=== PATIENT | female | born 1975 ===

== ENCOUNTER → 2023-07-01 08:55 | Outpatient (CLI) | payer OTHER, SELFPAY ==
--- NOTE | 2023-07-01 | DI.US.S_ITS ---
LIMITED ULTRASOUND OF LEFT BREAST: 07/01/2023 CLINICAL: Patient returns today to evaluate a focal asymmetry in the left breast. Comparison is made to exams dated: 07/01/2023 mammogram - [facility], 06/13/2023 mammogram, 07/09/2019 mammogram, 07/09/2019 ultrasound, 12/08/2018 mammogram, and 12/08/2018 ultrasound - outside location. Color flow ultrasound of the left breast 8 o'clock region was performed. Jacobsen scale images of the real-time examination were reviewed. There is a 0.4 cm x 0.5 cm x 0.6 cm taller than wide oval cyst in the left breast at 8 o'clock anterior depth 3 cm from the nipple. This oval cyst is hypoechoic with a well-defined boundary and posterior acoustic enhancement. This correlates with mammography findings. Color flow imaging demonstrates that there is an adjacent vascularity. IMPRESSION: PROBABLY BENIGN The 0.4 cm x 0.6 cm taller than wide oval cyst in the left breast is probably a complicated cyst and is probably benign. A follow-up left mammogram and an ultrasound in 6 months is recommended to demonstrate stability. Findings and recommendations were conveyed to the patient at time of exam. This exam was interpreted at Station ID: [id number]. Electronically Signed By: Kerry see/:07/01/2023 10:28:00 letter sent: Followup Recommended Ultrasound BI-RADS: 3 Probably benign
--- NOTE | 2023-07-01 | DI.MG.S_ITS ---
UNILATERAL LEFT DIGITAL DIAGNOSTIC MAMMOGRAM 3D/2D WITH ADDITIONAL VIEWS: 07/01/2023 CLINICAL: Additional evaluation requested from prior study. Comparison is made to exams dated: 06/13/2023 mammogram, 07/09/2019 mammogram, and 12/08/2018 mammogram - outside location. The left breast is heterogeneously dense, which may obscure small masses (category c / 51-75% glandular tissue). There is a new 7 mm oval equal density asymmetry with an indistinct and circumscribed margin in the left breast at 8 o'clock anterior depth. This is confirmed with additional views. No other significant masses or calcifications are seen in the breast. IMPRESSION: INCOMPLETE: NEEDS ADDITIONAL IMAGING EVALUATION The new asymmetry in the left breast most likely is a cyst or a lymph node but remains indeterminate. An ultrasound is recommended. This was performed immediately following this exam. Based on the Tyrer Cuzick model (a risk assessment model) the patient's lifetime risk is 10.7% and her 10 year risk is 2.4%. According to the ACR, ACS, and NCCN guidelines, an annual breast MRI exam along with mammogram is recommended if the patient's lifetime risk is 20% or greater. This exam was interpreted at Station ID: [id number]. NOTE: For mammograms, a report in lay terms will be sent to the patient. Approximately 15% of breast malignancies will not be visualized mammographically. In the management of a palpable breast mass, a negative mammogram must not discourage biopsy of a clinically suspicious lesion. Electronically Signed By: Kerry see/:07/01/2023 10:25:51 ACR BI-RADS Category 0: Incomplete [id number]
== END ==
PROVIDERS: PCP Internal Medicine; Referring Provider Internal Medicine; Visit Provider Internal Medicine
DX: R92.8 Other abnormal and inconclusive findings on diagnostic imaging of breast (principal); N60.02 Solitary cyst of left breast
CPT/HCPCS: 76642; 77065; G0279